=== PATIENT | female | born 1945 | race Caucasian/White ===

== ENCOUNTER 2020-01-23 00:38 | Outpatient (CLI) | payer MEDICARE, SELFPAY ==
[2020-01-23 18:11] LABS: SARS-CoV-2 RNA PCR Negative
== END 2020-01-23 00:39 | disposition home or self-care (01) ==
LOC: ANHCOVIDDT 00:40
PROVIDERS: PCP Internal Medicine; Visit Provider Internal Medicine Gastroenterology
DX: Z01.812 Encounter for preprocedural laboratory examination (principal); Z20.828 Contact with and (suspected) exposure to other viral communicable diseases
CPT/HCPCS: 87635; C9803; U0003

== ENCOUNTER 2020-01-25 03:10 | Day surgery (SDC) | payer MEDICARE, SELFPAY ==
[2020-01-20 13:00] VITALS: BMI 21.7
--- NOTE | 2020-01-25 08:22 | WPDANESEPPF ---
Anes - Initial Pre Proc Eval Procedure: Operation Date: 01/25/20 11:00 Proposed Procedures p Screening Colonoscopy - Marck Vance MD Date/Time: 01/25/20 08:22 Surgeon: Marck Vance MD Pre Op Diagnosis: Neoplasm Screening/ Fam Hx Colon Ca Patient Data Age: 74 Gender: F Height: 1.73 m Weight: 65 kg Allergies Allergy/AdvReac Type Severity Reaction Status Date / Time No Known Allergies Allergy Verified 01/25/20 10:53 Home Medications Medication Instructions Recorded Confirmed Type calcitriol 0.25 mcg PO DAILY 01/20/20 01/20/20 History ergocalciferol (vitamin D2) 50,000 unit PO [id number] 01/20/20 01/20/20 History furosemide 40 mg PO DAILY 01/20/20 01/20/20 History gabapentin 300 mg PO TID 01/20/20 01/20/20 History hydrocodone-acetaminophen 1 tablet PO QID PRN 01/20/20 01/20/20 History levothyroxine 88 mcg PO DAILY 01/20/20 01/20/20 History metformin 1,000 mg PO DAILY 01/20/20 01/20/20 History Patient hx anesthesia problems: none Family hx anesthesia problems: none PMFSH Past Medical History Medical History Diabetes type 2, controlled Hypertension Hypothyroidism detention prescription opiate use Surgical History Surgical History (Updated 01/24/20 @ 14:45 by Rosales Regan DO) History of cholecystectomy Family History Family History Father Family history of pancreatic cancer Hypertension Sibling Diabetes mellitus Hypertension Family history of lung cancer Mother Hypertension Carcinoma of colon Social History Social History Smoking packs per day: 1 Smoking cigarettes per day: 20.0 Years smoked: 20 Smoking pack-years: 20.00 Smoking status: Former smoker Tobacco type: cigarettes Second hand tobacco smoke exposure: No Smoking end date: 04/20/08 Alcohol intake: never Substance use: never Substance use type: does not use Living arrangements: alone Spiritual care concerns: No Anes - Eval Final PreProcedure Day of Procedure 01/25/20 08:22 Patient weight: normal Heart: regular rate and rhythm Lungs: clear to auscultation and normal air movement Airway: Mallampati scale class II Neurological: alert and oriented Last oral intake: >/= 8 hours ASA classification: III Emergent: no Anesthetic plan: proceed Anesthesia type and monitoring: general GIVS and standard monitoring Informed Consent: The patient's anesthetic plan and its attendant risks and benefits were discussed with the patient/family/POA. Questions were solicited and answers provided to the satisfaction of the patient/family/POA.
--- NOTE | 2020-01-25 10:47 | PM.HPGS ---
History of Present Illness History of Present Illness Consent: Risks, benefits, and alternatives have been discussed and questions answered. Patient agrees to proceed with procedure. Chief complaint: Neoplasm Screening/ Fam Hx Colon Ca Narrative: Kika Davila is a 74 year old female for screening colonoscopy. [facility] Past Medical History Medical History Diabetes type 2, controlled Hypertension Hypothyroidism group home prescription opiate use Surgical History Surgical History (Updated 01/24/20 @ 14:45 by Rosales Regan DO) History of cholecystectomy Family History Family History Father Family history of pancreatic cancer Hypertension Sibling Diabetes mellitus Hypertension Family history of lung cancer Mother Hypertension Carcinoma of colon Social History Social History Smoking packs per day: 1 Smoking cigarettes per day: 20.0 Years smoked: 20 Smoking pack-years: 20.00 Smoking status: Former smoker Tobacco type: cigarettes Second hand tobacco smoke exposure: No Smoking end date: 04/20/08 Alcohol intake: never Substance use: never Substance use type: does not use Living arrangements: alone Spiritual care concerns: No Meds Home Medications and Allergies Home Medications Medication Instructions Recorded Confirmed Type calcitriol 0.25 mcg PO DAILY 01/20/20 01/20/20 History ergocalciferol (vitamin D2) 50,000 unit PO [id number] 01/20/20 01/20/20 History furosemide 40 mg PO DAILY 01/20/20 01/20/20 History gabapentin 300 mg PO TID 01/20/20 01/20/20 History hydrocodone-acetaminophen 1 tablet PO QID PRN 01/20/20 01/20/20 History levothyroxine 88 mcg PO DAILY 01/20/20 01/20/20 History metformin 1,000 mg PO DAILY 01/20/20 01/20/20 History Allergies Allergy/AdvReac Type Severity Reaction Status Date / Time No Known Allergies Allergy Verified 01/20/20 13:13 Exam Resp: Auscultation: clear to auscultation bilaterally Cardio: Rate: regular rate Rhythm: regular rhythm GI: GI Palp: Yes Soft to palpation and No Tenderness to palpation present (GI) Assessment and Plan Assessment and plan (1) Colon cancer screening: Code(s): Z12.11 - Encounter for screening for malignant neoplasm of colon Status: Acute Assessment and Plan: Colonoscopy with possible biopsy or polypectomy or cautery or injection of substances.
[2020-01-25 10:54] VITALS: BP 132/68; PULSE 80; RESP 20; O2SAT 96; BMI 21.2
[2020-01-25 11:11] LABS: Glucose Point of Care 90 (65-105)
--- NOTE | 2020-01-25 11:12 | SUR.PREOP ---
Spoke with Dr Rojas from [facility] [phone]. states okay to access port a cath for colonoscopy today. Dr Vance and anesthesia made aware.
[2020-01-25] MEDS: LACTATED RINGERS 1,000 ML 150 ML IV CONT (11:21)
[2020-01-25 11:46] VITALS: BP 93/48; PULSE 68; RESP 20; O2SAT 100
[2020-01-25 11:56] VITALS: BP 94/48; PULSE 69; RESP 18; O2SAT 100
[2020-01-25] MEDS: HEPARIN SOD FLUSH 500 UNITS/5 ML SYRINGE IV PUSH (12:03)
[2020-01-25 12:06] VITALS: BP 124/70; PULSE 64; RESP 19; O2SAT 100
== END 2020-01-25 12:26 | disposition home or self-care (01) ==
PROVIDERS: PCP Internal Medicine; Visit Provider Internal Medicine Gastroenterology
PROC: 0DJD8ZZ Inspection of Lower Intestinal Tract, Via Natural or Artificial Opening Endoscopic (ICD-10-PCS; CPT 45378; principal; 2020-01-25 11:00)
DX: Z12.11 Encounter for screening for malignant neoplasm of colon (principal); K57.30 Diverticulosis of large intestine without perforation or abscess without bleeding; Z80.0 Family history of malignant neoplasm of digestive organs; I10 Essential (primary) hypertension; E11.9 Type 2 diabetes mellitus without complications; E03.9 Hypothyroidism, unspecified; Z79.891 Long term (current) use of opiate analgesic; Z87.891 Personal history of nicotine dependence; Z79.84 Long term (current) use of oral hypoglycemic drugs
CPT/HCPCS: G0105; J2704; J7120

== ENCOUNTER 2023-05-27 13:54 | Outpatient (CLI) | payer MEDICARE, SELFPAY ==
--- NOTE | ~2023-05-27 | XR_ITS ---
EXAMINATION: XR lg joint inject/asp w image DATE: 05/27/2023 15:00 INDICATION: Primary osteoarthritis of the right hip pain TECHNIQUE: A time-out was performed to verify the patient's name, date of , and procedure to b e performed. The procedure including the risks, benefits, and alternatives was discussed with the pat ient. Risks discussed included bleeding and infection. The patient understood the risks and agreed to proceed. The skin overlying the right hip joint was prepped and draped in usual sterile fashion. A nesthetic was administered with 1% lidocaine subcutaneously. A 22 G needle was advanced under fluoro scopic guidance into the joint. Injection of 1 mL of Omnipaque 240 confirmed intra-articular positio n of the needle. Subsequently, injectate consisting of 5 mm a 4:1 mixture of 1% lidocaine: 80 mg/mL Depo-Medrol for a total dosage of 80 mg Depo-Medrol was instilled. Washout of contrast was seen confi rming intra-articular administration. The needle was removed and the entry site was cleaned and dress ed. There were no immediate complications. Fluoroscopy exposure time was 0.1 minutes. The total numb er of images was 2. Total DAP was 0.5 Gycm^2 FINDINGS: Real-time fluoroscopy demonstrates the needle in the right hip joint. There is severe right hip osteoarthritis. Patient's pain prior to procedure:05/30. Patient's pain following the procedure: 04/29. IMPRESSION: 1. Successful right hip joint injection of local anesthetic and steroid with decrease in the patient' s presenting pain. Reviewed, dictated and finalized at location A. [employer] IMPRESSION: 1. Successful right hip joint injection of local anesthetic and steroid with de crease in the patient's presenting pain.
== END 2023-05-27 13:55 | disposition home or self-care (01) ==
LOC: ANHIMG 13:55
PROVIDERS: PCP Registered Nurse; Visit Provider Orthopaedic Surgery
DX: M16.11 Unilateral primary osteoarthritis, right hip (principal)
CPT/HCPCS: 20610; 77002; J1040